=== PATIENT | male | born 1975 | race Caucasian/White ===

== ENCOUNTER 2016-10-10 20:13 | Inpatient (IN) | payer MEDICAID, OTHER ==
[2016-10-11 01:44] LABS: ALT 274 U/L (21-72); AST 192 U/L (17-59); Acetaminophen <10.0 ug/mL; Alkaline Phosphatase 66 U/L (38-126); Anion Gap 9 mmol/L; Blood Urea Nitrogen 10 mg/dL (9-20); Calcium 9.5 mg/dL (8.4-10.2); Carbon Dioxide 26 mmol/L (22-30); Chloride 103 mmol/L (98-107); Glucose 118 mg/dL (74-99); Non-African American GFR(MDRD) >60 (>60 ml/min/1.73 sqM); Potassium 4.1 mmol/L (3.5-5.1); Salicylate <1.0 mg/dL; Sodium 138 mmol/L (137-145); Total Bilirubin 1.8 mg/dL (0.2-1.3); Total Protein 8.8 g/dL (6.3-8.2)
[2016-10-11 01:55] LABS: Basophils # (A) 0.1 k/uL (0-0.2); Basophils % (A) 1 %; CH 36.5; CHCM 36.5; Eosinophils # (A) 0.1 k/uL (0-0.7); Eosinophils % (A) 1 %; HCT 44.8 % (39.0-53.0); HDW 2.73; HGB 15.6 gm/dL (13.0-17.5); Luc # (Auto) 0.15; Luc % (Auto) 3; Lymphocytes # (A) 1.4 k/uL (1.0-4.8); Lymphocytes % (A) 24 %; MCHC 34.8 g/dL (31.0-37.0); MCV 100.6 fL (80.0-100.0); Mean Platelet Volume 8.6; Monocytes # (A) 0.4 k/uL (0-1.0); Monocytes % (A) 8 %; Neutrophils # (A) 3.6 k/uL (1.3-7.7); Neutrophils % (A) 64 %; RBC 4.45 m/uL (4.30-5.90); RDW 13.5 % (11.5-15.5); WBC 5.7 k/uL (3.8-10.6); WBC (Perox) 5.94
[2016-10-11] MEDS ORDERED: MAGNESIUM HYDROXIDE 2,400 MG/10 ML CUP PO PRN (02:43)
[2016-10-11] MEDS ORDERED: MAG HYDROX/AL HYDROX/SIMETH 30 ML CUP PO PRN (02:43)
[2016-10-11] MEDS ORDERED: ACETAMINOPHEN TAB 325 MG TAB PO PRN (02:43)
[2016-10-11] MEDS: NICOTINE 14MG/24HR PATCH TRANSDERM SCH (10:41)
[2016-10-11 12:53] LABS: Basophils # (A) 0.1 k/uL (0-0.2); Basophils % (A) 1 %; CH 36.6; CHCM 36.1; Eosinophils # (A) 0.1 k/uL (0-0.7); Eosinophils % (A) 2 %; HCT 45.5 % (39.0-53.0); HDW 2.71; HGB 15.9 gm/dL (13.0-17.5); Luc # (Auto) 0.21; Luc % (Auto) 4; Lymphocytes # (A) 1.2 k/uL (1.0-4.8); Lymphocytes % (A) 20 %; MCH 35.5 pg (25.0-35.0); MCV 101.7 fL (80.0-100.0); Macrocytosis Slight; Mean Platelet Volume 8.8; Monocytes # (A) 0.5 k/uL (0-1.0); Monocytes % (A) 8 %; Neutrophils % (A) 66 %; RBC 4.47 m/uL (4.30-5.90); RDW 13.6 % (11.5-15.5); WBC 6.1 k/uL (3.8-10.6); WBC (Perox) 5.59
[2016-10-11 12:58] LABS: ALT 285 U/L (21-72); AST 203 U/L (17-59); Alkaline Phosphatase 70 U/L (38-126); Anion Gap 13 mmol/L; Bilirubin, Delta 0.7 mg/dL (0.0-0.2); Blood Urea Nitrogen 12 mg/dL (9-20); Calcium 9.5 mg/dL (8.4-10.2); Carbon Dioxide 22 mmol/L (22-30); Chloride 107 mmol/L (98-107); Glucose 113 mg/dL (74-99); Non-African American GFR(MDRD) >60 (>60 ml/min/1.73 sqM); Potassium 4.4 mmol/L (3.5-5.1); Sodium 142 mmol/L (137-145); Total Bilirubin 1.7 mg/dL (0.2-1.3); Total Protein 8.6 g/dL (6.3-8.2)
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
[2016-10-11] MEDS: LORazepam 1 MG TAB PO PRN (21:20)
--- NOTE | 2016-10-11 22:14 | HP ---
DATE OF ADMISSION: 10/11/2016. IDENTIFYING DATA: This patient is a 40-year-old male who was admitted to the mental health unit through the emergency room after he reported a recent intentional overdose with heroin. HISTORY OF PRESENT ILLNESS: The patient states that on Wednesday morning. he intentionally tried to end his life with an overdose of heroin. He reports waking up in the ambulance with a sense of frustration and relief. He states that he is glad he survived but is so discouraged that he cannot stay clean from heroin. He states that he is sickened with himself and is just tired of this. He reports having suicidal thoughts this morning. He is endorsing some mild opiate withdrawal, but not severe. Appetite is decreased, sleep has decreased, energy is low. He is reporting some feelings of anhedonia. He would characterize his mood as being depressed. It appears that he does struggle with anxiety symptoms intermittently but it does not appear to be generalized and present on a regular basis. He is endorsing no panic attacks. No history of hypomanic or manic episodes. He is endorsing no auditory or visual hallucinations or specific delusions. PAST PSYCHIATRIC HISTORY: This is his third inpatient psychiatric admission. He was last on this unit in 2014 under the care of Dr. Griffin. This would be his second suicide attempt, the first was back in 2014 where he cut his wrists. He was prescribed Lexapro during that hospitalization but he states he quit soon after discharge. He endorses no side effects with the medication. He does or not he does not recall any other psychotropic medications prescribed. We did go through a list. He does not work with an outpatient psychiatrist or therapist. PAST MEDICAL HISTORY: Hepatitis C. ALLERGIES: No known drug allergies. Chemical dependency history: No use of alcohol, marijuana cocaine or other illicits except for heroin and other opiates. He has been struggling with heroin and other opiate use for several years. He has been to residential treatment numerous times in the past. He was at [facility] in 2006, 2008, 2009 to get off of methadone, he finally stopped methadone in 2011 during an admission at [facility]. His longest sobriety is 11 months. FAMILY PSYCHIATRIC HISTORY/PAST PSYCHIATRIC HISTORY: None reported. No suicides in the family. Family chemical dependency history: Unknown. SOCIAL HISTORY: The patient is 40 years old. He is . He has 2 children, ages 11 and 13. They reside with their mother. The patient lives alone. However, most recently he has been at [facility] [place] [facility]. He was there for 2-1/2 months. It is a 6 month program, but he left early. He has no source of income. He is unemployed. He has a high school education with some community college credits. No history of service. He has one brother. He is originally from [place]. He states that he had a great childhood. He reports that he was on probation recently, but that has been removed. No reported abuse history. MENTAL STATUS EXAM: The patient is a male appearing his stated age. He is dressed in hospital attire. He has a disheveled appearance. Eye contact is intermittent. He is pleasant and cooperative. Speech is fluent, spontaneous, nonpressured. He reports a depressed, discouraged mood. He reports suicidal ideation, as recent as this morning. He is endorsing no homicidal ideation. He is endorsing no auditory or visual hallucinations. No specific delusions. There is no evidence of psychosis. He is endorsing no racing thoughts. There is no evidence of hypomanic or manic symptoms. Insight and judgment limited at this time. Cognitively, he is grossly intact. He is alert and oriented to person, place, and date. He is able to spell world backwards. He demonstrates no verbal or physical aggressiveness. Affect is constricted. Strengths: Willingness to receive voluntary help. Weaknesses: Ongoing opiate use disorder. Intelligence: Average. IMPRESSIONS: 1. Major depressive disorder, recurrent, severe without psychosis, opiate use disorder. 2. Hepatitis C. PLAN: The patient has been admitted to the mental health unit. He is here voluntarily. We reviewed medication options. We decided to initiate Wellbutrin XL 150 mg in the morning starting tomorrow. We discussed plans of initiating naltrexone. He will be seen by the storage garage attendant for routine history and physical exam. Social work will meet with the patient to complete a psychosocial assessment and begin discharge planning. We will discuss the possibility of inpatient chemical dependency treatment again. We will monitor him for safety.
[2016-10-12] MEDS ORDERED: buPROPion XL 150 MG TAB.ER.24H PO SCH (09:00)
[2016-10-12] MEDS: NICOTINE 14MG/24HR PATCH TRANSDERM SCH (09:44)
--- NOTE | 2016-10-12 09:44 | P.PN ---
Progress Note - Text Interval history: The patient is found in his room he follows me to an interview room. He reports having some difficulty with sleep but this was helped with an Ativan. He did not attend many groups yesterday we discussed it further and he is willing to attend today. His mood is down he is depressed he has hopeless thoughts. He continues to struggle with staying clean from substance use. He reports having sciatic nerve pain and we discussed restarting Neurontin as he had been successful with that in the past. Opiate withdrawal symptoms are abating he was able to eat this morning. He is considering inpatient chemical dependency treatment again but has not yet decided. Mental status exam: The patient's a thin male appearing his stated age he has a disheveled appearance hygiene is adequate he is dressed in his own clothing. Eye contact is intermittent speech is fluent spontaneous nonpressured. He endorses a depressed mood with some hopeless thinking. No homicidal ideation intent or plan he is reporting no auditory or visual hallucinations no specific delusions, there is no evidence of psychosis. He does not appear hypomanic or manic. Thought process is linear. Insight and judgment limited. He demonstrates no verbal or physical aggressiveness. He is oriented to person place and date. Plan: The patient will continue on Wellbutrin XL 150 mg daily we will likely titrate this further during the course of his stay. I will initiate Neurontin 300 mg 3 times daily to address his sciatic pain this may anecdotally help with anxiety. Vital signs reviewed. He is instructed to attend groups. He feels he will have a decision tomorrow regarding his plans for chemical dependency treatment. He is encouraged to consider inpatient chemical dependency treatment.
[2016-10-12] MEDS: GABAPENTIN 300 MG CAP PO SCH ×3 (09:45→21:05)
[2016-10-12 19:10] LABS: Hepatitis B Surface Ag Index 0.07
[2016-10-12 19:16] LABS: Hepatitis B Core IgM Index 0.03
[2016-10-12 19:33] LABS: Hepatitis C Virus IgG Ab Reactive (Negative)
[2016-10-12] MEDS: LORazepam 1 MG TAB PO PRN (21:05)
[2016-10-13 06:11] VITALS: RESP 16
--- NOTE | 2016-10-13 08:55 | P.PN ---
Progress Note - Text Interval history: The patient is found in the dining room he follows me to an interview room. He reports his mood is improving. He felt that the withdrawal symptoms resolved early yesterday afternoon. He reports attending groups during the afternoon. Appetite has improved. He has decided that he will try to pursue [facility] rather than return to inpatient chemical dependency treatment. We discussed his current medications we discussed titrating the Wellbutrin XL further to a therapeutic dose and adding naltrexone to reduce cravings for opiates. He is agreeable to both interventions. Mental status exam: The patient is alert he seated calmly eye contact is appropriate speech is fluent spontaneous nonpressured. He reports his mood is improving affect is constricted. He is reporting no acute suicidal or homicidal ideation intent or plan he feels safe in the hospital. No homicidal ideation intent or plan. He is endorsing no auditory or visual hallucinations no specific delusions. There is no evidence of psychosis. Thought process is linear insight and judgment grossly intact. He demonstrates no verbal or physical aggressiveness. Plan: The patient will continue on the Wellbutrin XL we will titrate the dose to 300 mg in the morning naltrexone 50 mg daily will be initiated he will be continued on the Neurontin 300 mg 3 times daily. We will consider discharge in the next 1-2 days. He is [facility] services and is hoping to reside at [facility]. Vital signs reviewed. We will continue to monitor him for safety.
[2016-10-13] MEDS: NICOTINE 14MG/24HR PATCH TRANSDERM SCH (09:40)
[2016-10-13] MEDS: buPROPion XL 300 MG TAB.ER.24H PO SCH (09:40)
[2016-10-13] MEDS: GABAPENTIN 300 MG CAP PO SCH ×3 (09:40→21:02)
[2016-10-13] MEDS: NALTREXONE HCL 50 MG TAB PO SCH (09:42)
[2016-10-13] MEDS: LORazepam 1 MG TAB PO PRN (21:03)
[2016-10-14 07:03] VITALS: BP 109/71; PULSE 71; TEMP 98.6
[2016-10-14] MEDS: buPROPion XL 300 MG TAB.ER.24H PO SCH (09:14)
[2016-10-14] MEDS: NALTREXONE HCL 50 MG TAB PO SCH (09:14)
[2016-10-14] MEDS: GABAPENTIN 300 MG CAP PO SCH (09:14)
[2016-10-14] MEDS: NICOTINE 14MG/24HR PATCH TRANSDERM SCH (09:15)
--- NOTE | 2016-10-14 09:19 | P.DS ---
Providers Date of admission: 10/11/16 01:15 Expected date of discharge: 10/14/16 Attending physician: Edward Hall Consults: 10/11/16 02:43 Consult Physician Routine Consulting Provider: Ethan Dc Consult Reason/Comments: medical management Do you want consulting provider notified?: Yes, Notify in am Primary care physician: Stated None - Discharge Diagnosis(es) (1) Major depressive disorder, recurrent severe without psychotic features Current Visit: Yes Status: Acute Priority: High (2) Opiate dependence Current Visit: Yes Status: Acute Priority: High Hospital Course: Brief summary of admission note: This patient is a 40-year-old male who was admitted to the mental health unit through the emergency room with suicidal ideation. The patient stated that he had recently intentionally overdosed with heroin hoping to end his life. He reported he was glad he survived but is discouraged that he cannot stay clean from heroin. He has a long history of major depressive disorder and recently endorsed symptoms of decreased appetite and poor sleep low energy anhedonia and hopelessness. For full details please refer to my psychiatric evaluation dated 10/11/2016. Summary of hospital course: The patient was admitted to the mental health unit he signed in voluntarily. We reviewed his medication options and he was started on Wellbutrin XL 150 mg daily this was titrated to 300 mg daily. Later we added naltrexone to assist in reducing cravings for opiate use. Neurontin was readmitted to address symptoms of back pain. The patient was seen by the compliance manager for routine medical exam. His liver enzymes were elevated due to his diagnosis of hepatitis C. He is instructed to follow-up with his primary care physician for further direction. Social work met with patient to complete a psychosocial assessment. The patient was cooperative with attending groups he demonstrated no agitated behavior. He noted a resolution of his suicidal thinking. He experienced very mild opiate withdrawal symptoms. We discussed his options for chemical dependency treatment he was willing to attend [facility] and work with [facility] as an outpatient. He did not want to return to [facility] or [place] for inpatient chemical dependency treatment. Mental status exam: The patient is a male appearing his stated age. He has good hygiene grooming eye contact is appropriate. He is dressed appropriately in his own clothing. He states his mood is "good" affect is euthymic and congruent to reported mood. He is reporting no suicidal or homicidal ideation intent or plan. He does not feel hopeless. He is endorsing no auditory or visual hallucinations and no specific delusions, there is no evidence of psychosis. He does not appear hypomanic or manic. Insight and judgment grossly intact. He demonstrates no verbal or physical aggressiveness. Cognitive abilities remain stable and he is oriented to person place and date. Impressions 1. Major depressive disorder recurrent severe without psychosis, opiate use disorder 2. Hepatitis C Plan: The patient will be discharged today from the mental health unit he will reside at [facility] and we'll meet with them at noon today. He will continue on Wellbutrin XL 300 mg daily, Neurontin 300 mg 3 times daily, naltrexone 50 mg daily. Social work will arrange his outpatient follow-up with [facility]. He will address his psychiatric symptoms including substance use with his outpatient appointments. He does not wish to have inpatient chemical dependency treatment at this time. There is no imminent safety risk he is appropriate for transition to outpatient care. We discussed that if he were to reuse alcohol or illicit drugs his safety risk is increased. He is instructed to return to the hospitals any acute safety concerns. Patient Condition at Discharge: Stable Plan - Discharge Summary New Discharge Prescriptions: buPROPion XL [Wellbutrin XL] 300 mg PO DAILY #30 tab Gabapentin [Neurontin] 300 mg PO TID #45 cap Naltrexone HCl [Revia] 50 mg PO DAILY #30 tab Nicotine 14Mg/24Hr Patch [Habitrol] 1 patch TRANSDERM DAILY #12 patch Discharge Medication List Gabapentin [Neurontin] 300 mg PO TID #45 cap 10/14/16 [Rx] Naltrexone HCl [Revia] 50 mg PO DAILY #30 tab 10/14/16 [Rx] Nicotine 14Mg/24Hr Patch [Habitrol] 1 patch TRANSDERM DAILY #12 patch 10/14/16 [ Rx] buPROPion XL [Wellbutrin XL] 300 mg PO DAILY #30 tab 10/14/16 [Rx] Follow up Appointment(s)/Referral(s): None,Stated [Primary Care Provider] - 1 Week
== END 2016-10-14 11:44 | disposition home or self-care (01) | DRG 885 ==
LOC: EC 20:13 → 3MHU 10-11 01:15
PROVIDERS: ADMIT Psychiatry & Neurology Psychiatry; ATTEND Psychiatry & Neurology Psychiatry
DX: F33.2 Major depressive disorder, recurrent severe without psychotic features (principal); R45.851 Suicidal ideations; F11.23 Opioid dependence with withdrawal; B19.20 Unspecified viral hepatitis C without hepatic coma; M54.30 Sciatica, unspecified side; Z91.5 Personal history of self-harm
CPT/HCPCS: 80053; 80074; 80306; 82075; 82248; 83520; 84443; 85025

== ENCOUNTER 2017-09-18 17:41 | Emergency (ER) | payer MEDICAID, OTHER ==
[2017-09-18 17:50] VITALS: BP 135/79; PULSE 88; RESP 18; TEMP 98.1
--- NOTE | 2017-09-18 18:09 | ED ---
Extremity Problem HPI - General Chief complaint: Extremity Problem,Nontraumatic Stated complaint: Knee/leg/foot swollen Time Seen by Provider: 09/18/17 17:51 Source: patient, RN notes reviewed Mode of arrival: ambulatory Limitations: no limitations - History of Present Illness Initial comments: This is a 41-year-old male who presents to the emergency department with chief complaint of right leg swelling. 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 He states that for years his right knee would frequently give out. He states that over the last few months he has had several episodes of right lower extremity swelling that eventually subsided on its own. He states that for the past week and a half the right lower extremity has become swollen again. He has become concerned that he may have a blood clot. 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 He has noticed swelling in both ankles, however the right leg and ankle is significantly more swollen than the left one. Patient denies fevers or chills, chest pain or shortness of breath, abdominal pain, nausea or vomiting. He denies any specific injuries, falls or trauma. - Related Data Previous Rx's Medication Instructions Recorded Gabapentin [Neurontin] 300 mg PO TID #45 cap 10/14/16 Naltrexone HCl [Revia] 50 mg PO DAILY #30 tab 10/14/16 Nicotine 14Mg/24Hr Patch [Habitrol] 1 patch TRANSDERM DAILY #12 patch 10/14/16 buPROPion XL [Wellbutrin XL] 300 mg PO DAILY #30 tab 10/14/16 Allergies Allergy/AdvReac Type Severity Reaction Status Date / Time No Known Allergies Allergy Verified 09/18/17 17:50 Review of Systems ROS Statement: Those systems with pertinent positive or pertinent negative responses have been documented in the HPI. ROS Other: All systems not noted in ROS Statement are negative. Past Medical History Past Medical History: No Reported History Additional Past Medical History / Comment(s): Depressive disorder, sciatica on the right, chronic tobacco use and dependence, heroine use, methadone use. History of Any Multi-Drug Resistant Organisms: None Reported Past Surgical History: Orthopedic Surgery Past Psychological History: No Psychological Hx Reported Smoking Status: Current every day smoker Past Alcohol Use History: Rare Past Drug Use History: None Reported - Past Family History Mother Family Medical History: CVA/TIA (Mother is 70-year-old with history of CVA 3.) Father Family Medical History: No Reported History (Father is 67-year-old no major medical problems.) Brother(s) Family Medical History: No Reported History (Patient has one brother no major medical problems.) Daughter(s) Family Medical History: No Reported History (Patient has a daughter no major problems) Son(s) Family Medical History: No Reported History (Patient has one son no major medical problems.) General Exam - General Exam Comments Initial Comments: General: Awake and alert, well-developed; in no apparent distress. HEENT: Head atraumatic, normocephalic. Pupils are equal, round and reactive to light. Extraocular movements intact. Oropharynx moist without erythema or exudate. Neck: Supple. Normal ROM. Cardiovascular: Regular rate and rhythm. No murmurs, rubs or gallops. Chest symmetrical. Respiratory: Lungs clear to auscultation bilaterally. No wheezes, rales or rhonchi. Normal respiratory effort with no use of accessory muscles. Musculoskeletal: Normal range of motion of right knee, ankle and digits. There is mild tenderness on palpation of the right calf. There is 2+ pitting edema of right seymour, ankle and foot. Sensation is intact. No erythema or warmth noted. Pedal pulses are 2+ equal and palpable bilaterally. No gross deformities. Skin: No Name, warm and dry without rashes or lesions. Neurological: Alert and oriented x3. CN II-XII grossly intact. Speech is fluent and answers are appropriate. No focal neuro deficits. Psychiatric: Normal mood and affect. No overt signs of depression or anxiety noted. Limitations: no limitations Course Vital Signs 09/18/17 17:46 Temperature 98.1 F Pulse Rate 88 Respiratory 18 Rate Blood Pressure 135/79 O2 Sat by Pulse 98 Oximetry Medical Decision Making - Medical Decision Making This is a 41-year-old male who presented to the emergency department with chief complaint of right lower extremity swelling. Patient reports swelling to the right leg for the past month and a half. He denied any injuries or trauma. He states he was worried about a blood clot. On physical examination, there is pitting edema to the right seymour, ankle and foot. There is mild swelling to the left lower extremity. Ultrasound venous Doppler was obtained of the right lower extremity and revealed no evidence for an acute DVT. This case was discussed with attending physician, Dr. Mchugh. I have recommended compression stockings and elevation of legs higher than the heart when possible, especially in the evenings after work. Recommended follow-up with primary care provider within 1-2 days. Patient's vital signs are stable and he is in no acute distress. He'll be discharged home at this time. He is in agreement with the plan and voices understanding. All questions were answered. - Radiology Data Radiology results: report reviewed Ultrasound venous Doppler right lower extremity impression: No ultrasound evidence for acute DVT in the right lower extremity. Disposition Clinical Impression: Swelling of right lower extremity Disposition: HOME SELF-CARE Condition: Good Instructions: Leg Edema (ED) Additional Instructions: Please wear compression stockings daily. Please elevate legs higher than your heart whenever possible. Please follow up with primary care provider within 1- 2 days. Return to emergency department if symptoms should worsen or any concerns arise. Is patient prescribed a controlled substance at d/c from ED?: No Referrals: Sandra eMjía MD [Primary Care Provider] - 1-2 days Time of Disposition: 19:14
--- NOTE | 2017-09-18 19:04 | US ---
EXAMINATION TYPE: US venous doppler duplex LE RT DATE OF EXAM: 09/18/2017 6:43 PM COMPARISON: NONE CLINICAL HISTORY: swelling. SIDE PERFORMED: Right TECHNIQUE: The lower extremity deep venous system is examined utilizing real time linear array sonog raciel with graded compression, doppler sonography and color-flow sonography. VESSELS IMAGED: External Iliac Vein (EIV) Common Femoral Vein Deep Femoral Vein Greater Saphenous Vein * Femoral Vein Popliteal Vein Small Saphenous Vein * Proximal Calf Veins (* superficial vessels) Right Leg: Negative for DVT Grayscale, color doppler, spectral doppler imaging performed of the deep veins of the right lower ext remity. There is normal flow, compressibility, vascular waveforms. IMPRESSION: No ultrasound evidence for acute DVT in right lower extremity.
== END 2017-09-18 19:20 | disposition home or self-care (01) ==
LOC: EC 17:41
DX: M79.89 Other specified soft tissue disorders (principal); F17.200 Nicotine dependence, unspecified, uncomplicated
CPT/HCPCS: 99283

== ENCOUNTER 2018-09-21 20:23 | Emergency (ER) | payer OTHER ==
[2018-09-21 20:39] VITALS: BP 122/72; PULSE 70; RESP 20; TEMP 98.2
[2018-09-21] MEDS ORDERED: LIDOCAINE 1% INJ 10MG/ML (20 ML MDV) SQ ONE (20:56)
[2018-09-21] MEDS ORDERED: DIPH,PERTUS(ACELL)TETVAC-LF 0.5 ML VIAL IM ONE (20:56)
--- NOTE | 2018-09-21 21:53 | ED ---
General Adult HPI - General Chief complaint: Wound/Laceration Stated complaint: LAC MIDDLE FINGER LEFT HAND Time Seen by Provider: 09/21/18 20:51 Source: patient, RN notes reviewed Mode of arrival: ambulatory Limitations: no limitations - History of Present Illness Initial comments: 42-year-old male presents to the emergency department for a chief complaint of laceration to the left third finger times one hour. Patient was trying to open a movie box that accidentally had a lock left on it. States he cut his finger while he was doing that. Denies any other injuries. Denies any difficulty moving the finger.Patient has no other complaints at this time including shortness of breath, chest pain, abdominal pain, nausea or vomiting, headache, or visual changes. - Related Data Previous Rx's Medication Instructions Recorded Gabapentin [Neurontin] 300 mg PO TID #45 cap 10/14/16 Allergies Allergy/AdvReac Type Severity Reaction Status Date / Time No Known Allergies Allergy Verified 09/18/17 17:50 Review of Systems ROS Statement: Those systems with pertinent positive or pertinent negative responses have been documented in the HPI. ROS Other: All systems not noted in ROS Statement are negative. Past Medical History Past Medical History: No Reported History Additional Past Medical History / Comment(s): Depressive disorder, sciatica on the right, chronic tobacco use and dependence, heroine use, methadone use. History of Any Multi-Drug Resistant Organisms: None Reported Past Surgical History: Orthopedic Surgery Past Psychological History: No Psychological Hx Reported Smoking Status: Current every day smoker Past Alcohol Use History: Rare Past Drug Use History: None Reported - Past Family History Mother Family Medical History: CVA/TIA (Mother is 70-year-old with history of CVA 3.) Father Family Medical History: No Reported History (Father is 67-year-old no major medical problems.) Brother(s) Family Medical History: No Reported History (Patient has one brother no major medical problems.) Daughter(s) Family Medical History: No Reported History (Patient has a daughter no major problems) Son(s) Family Medical History: No Reported History (Patient has one son no major medical problems.) General Exam Limitations: no limitations General appearance: alert, in no apparent distress Head exam: Present: atraumatic, normocephalic, normal inspection Eye exam: Present: normal appearance, PERRL, EOMI. Absent: scleral icterus, conjunctival injection, periorbital swelling ENT exam: Present: normal exam, mucous membranes moist Neck exam: Present: normal inspection, full ROM. Absent: tenderness, meningismus, lymphadenopathy Respiratory exam: Present: normal lung sounds bilaterally. Absent: respiratory distress, wheezes, rales, rhonchi, stridor Cardiovascular Exam: Present: regular rate, normal rhythm, normal heart sounds. Absent: systolic murmur, diastolic murmur, rubs, gallop, clicks Extremities exam: Present: full ROM (Full range of Motion of the left third digit), normal capillary refill (Capillary refill less than 2 seconds in the left third digit, radial pulse 2+ in the left upper extremity), other (There is increasing liter laceration noted to the radial aspect of the distal phalanx of the left third digit. No evidence of foreign body or deep structure injury) Neurological exam: Present: alert, oriented X3, CN II-XII intact Psychiatric exam: Present: normal affect, normal mood Course Vital Signs 09/21/18 20:36 Temperature 98.2 F Pulse Rate 70 Respiratory 20 Rate Blood Pressure 122/72 O2 Sat by Pulse 100 Oximetry Procedures - Laceration Laceration #1 Consent Obtained: verbal consent Indication: laceration Site: hand Size (cm): 3 Description: linear Depth: simple, single layer Anesthetic Used: lidocaine 1% Anesthesia Technique: local infiltration Amount (mls): 4 Pre-repair: wound explored, irrigated extensively (With saline pressure irrigation), deep structures intact Type of Sutures: nylon Size of Sutures: 5-0 Number of Sutures: 4 Technique: simple, interrupted Patient Tolerated Procedure: well, no complications Medical Decision Making - Medical Decision Making 42-year-old male presents for laceration of the left third digit. Full range of motion of the left third digit including MCP, PIP, and DIP joints. Neurovascular status intact in the left third digit. Patient has a 3 cm laceration noted of the radial aspect of the distal phalanx of the left third digit. This was cleaned thoroughly with sterile water and saline pressure irrigation. It was examined no evidence of foreign body or deep structure injury. It was then sutured using 4 simple interrupted sutures. Discussed return precautions including those for infection. Discussed returning if he has any worsening symptoms. Disposition Clinical Impression: Laceration Disposition: HOME SELF-CARE Condition: Good Instructions (If sedation given, give patient instructions): Care For Your Stitches (ED), Laceration (ED) Additional Instructions: Please monitor for any signs of infection such as spreading or streaking redness, drainage, or fever and return if these occur. Return in 7-10 days to have sutures removed. Otherwise follow-up with primary care in 1-2 days or return here if you have any worsening symptoms. Is patient prescribed a controlled substance at d/c from ED?: No Referrals: Gregory Wright MD [Primary Care Provider] - 1-2 days Time of Disposition: 21:52
== END 2018-09-21 22:19 | disposition home or self-care (01) ==
LOC: EC 20:23
DX: S61.213A Laceration without foreign body of left middle finger without damage to nail, initial encounter (principal); F17.200 Nicotine dependence, unspecified, uncomplicated; W27.8XXA Contact with other nonpowered hand tool, initial encounter
CPT/HCPCS: 99282; 12002; 90471; J2001

== ENCOUNTER 2019-01-05 12:55 | Emergency (ER) | payer OTHER ==
[2019-01-05 13:10] VITALS: BP 118/78; PULSE 92; RESP 18; TEMP 98.6
[2019-01-05] MEDS ORDERED: LIDOCAINE 1% INJ 10MG/ML (20 ML MDV) SQ ONE (13:46)
--- NOTE | 2019-01-05 14:03 | XR ---
EXAMINATION TYPE: XR hand complete LT DATE OF EXAM: 01/05/2019 CLINICAL HISTORY: Left hand pain, laceration injury near pinky. TECHNIQUE: Frontal, lateral and oblique images of the left hand are obtained. COMPARISON: None. FINDINGS: There is no acute fracture/dislocation evident in the left hand. Mild joint space loss thr oughout the phalanges is present with relative sparing of the MCP joints. The overlying soft tissue appears unremarkable without suspicious radiodense foreign body seen. IMPRESSION: As above.
[2019-01-05] MEDS ORDERED: ACET/COD 300 MG/30 MG STARTER PACK 6 TAB BTL PO STA (14:33)
--- NOTE | 2019-01-05 14:33 | ED ---
Wound/Laceration HPI - General Chief Complaint: Wound/Laceration Stated Complaint: [facility] - hand laceration Time Seen by Provider: 01/05/19 13:24 Source: patient, RN notes reviewed, old records reviewed Mode of arrival: ambulatory Limitations: no limitations - History of Present Illness Initial Comments: 43-year-old male presents emergency department today with a laceration over the thenar eminence of the left hand after cutting it on hedge trimmers. Patient reports that they were sharp and he excellently cut his hand. Patient reports full range of motion of the fingers. Patient states that he has no other significant complaints at this time. His tetanus shot is up-to-date. - Related Data Previous Rx's Medication Instructions Recorded Gabapentin [Neurontin] 300 mg PO TID #45 cap 10/14/16 Cephalexin [Keflex] 500 mg PO Q6HR 3 Days #12 cap 01/05/19 Ibuprofen [Motrin] 600 mg PO Q8HR PRN #20 tab 01/05/19 Allergies Allergy/AdvReac Type Severity Reaction Status Date / Time No Known Allergies Allergy Verified 01/05/19 13:10 Review of Systems ROS Statement: Those systems with pertinent positive or pertinent negative responses have been documented in the HPI. ROS Other: All systems not noted in ROS Statement are negative. Past Medical History Past Medical History: No Reported History Additional Past Medical History / Comment(s): Depressive disorder, sciatica on the right, chronic tobacco use and dependence, heroine use, methadone use. History of Any Multi-Drug Resistant Organisms: None Reported Past Surgical History: Orthopedic Surgery Past Psychological History: No Psychological Hx Reported Smoking Status: Current every day smoker Past Alcohol Use History: Rare Past Drug Use History: None Reported - Past Family History Mother Family Medical History: CVA/TIA (Mother is 70-year-old with history of CVA 3.) Father Family Medical History: No Reported History (Father is 67-year-old no major medical problems.) Brother(s) Family Medical History: No Reported History (Patient has one brother no major medical problems.) Daughter(s) Family Medical History: No Reported History (Patient has a daughter no major problems) Son(s) Family Medical History: No Reported History (Patient has one son no major medical problems.) General Exam - General Exam Comments Initial Comments: Patient's a 43-year-old male. Alert and oriented. No distress. Limitations: no limitations General appearance: alert, in no apparent distress Head exam: Present: atraumatic, normocephalic, normal inspection Eye exam: Present: normal appearance, PERRL, EOMI. Absent: scleral icterus, conjunctival injection, periorbital swelling ENT exam: Present: normal exam, mucous membranes moist Neck exam: Present: normal inspection. Absent: tenderness, meningismus, lymphadenopathy Respiratory exam: Present: normal lung sounds bilaterally. Absent: respiratory distress, wheezes, rales, rhonchi, stridor Cardiovascular Exam: Present: regular rate, normal rhythm, normal heart sounds. Absent: systolic murmur, diastolic murmur, rubs, gallop, clicks GI/Abdominal exam: Present: soft, normal bowel sounds. Absent: distended, tenderness, guarding, rebound, rigid Extremities exam: Present: normal inspection, full ROM, normal capillary refill, other (Patient has a 4 cm flap laceration over the left hyperthenar eminence and fifth digit.). Absent: tenderness, pedal edema, joint swelling, calf tenderness Back exam: Present: normal inspection Neurological exam: Present: alert, oriented X3, CN II-XII intact Psychiatric exam: Present: normal affect, normal mood Course Vital Signs 01/05/19 13:07 Temperature 98.6 F Pulse Rate 92 Respiratory 18 Rate Blood Pressure 118/78 O2 Sat by Pulse 96 Oximetry Procedures - Laceration Laceration #1 Indication: laceration Site: hand Size (cm): 4 Description: flap Depth: simple, single layer Anesthetic Used: lidocaine 1% Anesthesia Technique: local infiltration Amount (mls): 5 Pre-repair: wound explored, irrigated extensively Type of Sutures: nylon Size of Sutures: 5-0 Number of Sutures: 8 Technique: simple, interrupted Patient Tolerated Procedure: well, no complications Medical Decision Making - Medical Decision Making [id number] male presents with left hand laceration. Laceration was earlier get it and cleansed with saline and iodine. Laceration was well proximal male with sutures. Has full range of motion of the fingers. No tendon involvement. Patient will be discharged at this time with close PCP follow-up. All questions answered return parameters were discussed. - Radiology Data Radiology results: report reviewed No Acute fracture dislocation in the hand. Mild joint space loss or other phalanges present. Overlying soft tissues unremarkable without radiodense foreign body. Disposition Clinical Impression: Finger laceration Disposition: HOME SELF-CARE Condition: Good Instructions (If sedation given, give patient instructions): Finger Laceration (ED) Additional Instructions: Please return to the emergency room in 8-10 days to have sutures removed. Please leave wound covered for the first 24-48 hours and then leave open to air after that time. Please use clean soap and water to clean the suture area to prevent scabbing over the top of your sutures. Please watch for any signs of infection which may include but not limited to increased pain, swelling, redness, fever or chills. Please return to the emergency room if any signs of infection do occur. Please return to the emergency room for any other concerns or complications. Prescriptions: Cephalexin [Keflex] 500 mg PO Q6HR 3 Days #12 cap Ibuprofen [Motrin] 600 mg PO Q8HR PRN #20 tab PRN Reason: Pain Is patient prescribed a controlled substance at d/c from ED?: No Referrals: Gregory Wright MD [Primary Care Provider] - 1-2 days Time of Disposition: 14:32
== END 2019-01-05 14:46 | disposition home or self-care (01) ==
LOC: EC 12:55
DX: S61.217A Laceration without foreign body of left little finger without damage to nail, initial encounter (principal); S61.412A Laceration without foreign body of left hand, initial encounter; F17.200 Nicotine dependence, unspecified, uncomplicated; W29.3XXA Contact with powered garden and outdoor hand tools and machinery, initial encounter; Y92.69 Other specified industrial and construction area as the place of occurrence of the external cause; Y99.0 Civilian activity done for income or pay
CPT/HCPCS: 99283; 12002; 73130; J2001

== ENCOUNTER 2024-08-08 17:44 | Emergency (ER) | payer OTHER ==
[2024-08-08 18:41] VITALS: RESP 18; TEMP 97.7
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
[2024-08-08 19:09] VITALS: BP 131/78; PULSE 84
== END 2024-08-08 19:23 | disposition home or self-care (01) ==
LOC: EC 17:44
DX: S62.306A Unspecified fracture of fifth metacarpal bone, right hand, initial encounter for closed fracture (principal); Z87.891 Personal history of nicotine dependence; W22.8XXA Striking against or struck by other objects, initial encounter
CPT/HCPCS: 29125; 99282